=== PATIENT | male | born 1980 ===

== ENCOUNTER 2016-11-19 05:27 | Emergency (ER) | payer MEDICAID ==
[2016-11-19 05:32] VITALS: BMI 30.8
[2016-11-19 05:34] VITALS: TEMP 98.9
[2016-11-19] MEDS ORDERED: Sodium Chloride 0.9% 1,000 ML IV STA (05:43)
[2016-11-19] MEDS ORDERED: Morphine 2 mg/ml ISec IVP STA ×2 (05:43→06:54)
--- NOTE | 2016-11-19 05:47 | ED PDOC ---
Arrival/HPI - General Chief Complaint: Abdominal Pain Time Seen by Provider: 11/19/16 05:34 Historian: Patient - History of Present Illness Narrative History of Present Illness (Text): 11/19/16 05:42 Chalo Paniagua is a 36 year old, with no significant past medical history, who presents to the Emergency department complaining of epigastric pain for the past few days. Patient denies any fever, chills, chest pain, shortness of breath, nausea, vomiting, diarrhea, urinary symptoms, back pain, neck pain, headache, dizziness, or any other complaints. Time/Duration: Other (few days) Symptom Onset: Gradual Symptom Course: Unchanged Activities at Onset: Light Context: Home Past Medical History - Provider Review Nursing Documentation Reviewed: Yes - Psychiatric Hx Substance Use: No Family/Social History - Physician Review Nursing Documentation Reviewed: Yes Family/Social History: Unknown Family HX Smoking Status: Never Smoked Hx Alcohol Use: Yes Frequency of alcohol use: Socially Hx Substance Use: No Allergies/Home Meds Allergies/Adverse Reactions: Allergies No Known Allergies Allergy (Verified 11/19/16 05:32) Review of Systems - Physician Review All systems were reviewed & negative as marked: Yes - Review of Systems Constitutional: Normal. absent: Fevers Eyes: Normal ENT: Normal Respiratory: Normal. absent: SOB, Cough Cardiovascular: Normal. absent: Chest Pain Gastrointestinal: Abdominal Pain. absent: Nausea, Vomiting Genitourinary Male: Normal. absent: Dysuria, Frequency, Hematuria, Urinary Output Changes Musculoskeletal: Normal. absent: Back Pain, Neck Pain Skin: Normal. absent: Rash Neurological: Normal. absent: Headache, Dizziness Endocrine: Normal Hemo/Lymphatic: Normal Psychiatric: Normal Physical Exam Vital Signs Reviewed: Yes Vital Signs Temp Pulse Resp BP Pulse Ox 11/19/16 10:20 73 17 121/72 98 11/19/16 07:05 76 18 149/96 H 97 11/19/16 05:34 98.9 F 79 16 145/93 H 98 Temperature: Afebrile Blood Pressure: Normal Pulse: Regular Respiratory Rate: Normal Appearance: Positive for: Well-Appearing, Non-Toxic, Comfortable Pain Distress: None Mental Status: Positive for: Alert and Oriented X 3 - Systems Exam Head: Present: Atraumatic, Normocephalic Pupils: Present: PERRL Extroacular Muscles: Present: EOMI Conjunctiva: Present: Normal Mouth: Present: Moist Mucous Membranes Neck: Present: Normal Range of Motion Respiratory/Chest: Present: Clear to Auscultation, Good Air Exchange. No: Respiratory Distress, Accessory Muscle Use Cardiovascular: Present: Regular Rate and Rhythm, Normal S1, S2. No: Murmurs Abdomen: Present: Tenderness (Epigastric tenderness), Normal Bowel Sounds. No: Distention, Peritoneal Signs Back: Present: Normal Inspection Upper Extremity: Present: Normal Inspection. No: Cyanosis, Edema Lower Extremity: Present: Normal Inspection. No: Edema Neurological: Present: GCS=15, CN II-XII Intact, Speech Normal Skin: Present: Warm, Dry, Normal Color. No: Rashes Psychiatric: Present: Alert, Oriented x 3, Normal Insight, Normal Concentration Medical Decision Making ED Course and Treatment: 11/19/16 05:42 Impression: 36 year old male complaining of epigastric pain for the past few days. Plan: -- US Gallbladder -- Labs, lipase -- Urinalysis -- IV fluids -- Zofran -- Protonix -- Morphine -- Reassess and disposition Progress Notes: - Lab Interpretations Lab Results: 11/19/16 05:39 11/19/16 05:39 Lab Results 11/19/16 05:43: Urine Color Yellow, Urine Appearance Clear, Urine pH 6.0, Ur Specific [place] 1.025, Urine Protein Negative, Urine Glucose (UA) Negative, Urine Ketones Negative, Urine Blood Negative, Urine Nitrate Negative, Urine Bilirubin Negative, Urine Urobilinogen 1.0 H, Ur Leukocyte Esterase Negative 11/19/16 05:39: Sodium 142, Potassium 3.8, Chloride 106, Carbon Dioxide 27, Anion Gap 13, BUN 19, Creatinine 0.9, Est GFR ( Amer) > 60, Est GFR (Non- Af Amer) > 60, Random Glucose 102, Calcium 8.9, Total Bilirubin 0.5, AST 47, ALT 54, Alkaline Phosphatase 55, Total Protein 7.2, Albumin 4.1, Globulin 3.1, Albumin/Globulin Ratio 1.3, Lipase 53 11/19/16 05:39: PT 11.1, INR 1.03, APTT 26.9 11/19/16 05:39: WBC 4.1 L, RBC 5.03, Hgb 14.8, Hct 43.2, MCV 85.9, MCH 29.4, MCHC 34.3, RDW 13.0, Plt Count 239, MPV 9.6, Gran % 40.5 L, Lymph % (Auto) 48.4 H, [place] % (Auto) 8.4 H, Eos % (Auto) 2.2, Baso % (Auto) 0.5, Gran # 1.65, Lymph # 2.0, [place] # 0.3, Eos # 0.1, Baso # 0.02 - RAD Interpretation Radiology Orders: 11/19/16 06:13 GALL BLADDER [US] Stat - Medication Orders Current Medication Orders: Discontinued Medications Sodium Chloride (Sodium Chloride 0.9%) 1,000 mls @ 100 mls/hr IV .Q10H STA Stop: 11/19/16 15:42 Last Admin: 11/19/16 05:51 Dose: 100 mls/hr eMAR Start Stop Document 11/19/16 05:51 OCS (Rec: 11/19/16 05:51 [id number] Intravenous Solution Start Date 11/19/16 Start Time 05:51 Morphine Sulfate (Morphine) 2 mg IVP STAT STA Stop: 11/19/16 05:44 Last Admin: 11/19/16 05:57 Dose: 2 mg MAR Pain Assessment Document 11/19/16 05:57 OCS (Rec: 11/19/16 05:58 [id number] Pain Reassessment Is this a pain reassessment? Yes Sleep Is patient sleeping during reassessment? No Presence of Pain Presence of Pain Yes Pain Scale Used Pain Scale Used Numeric Location Pain Location Body Site Abdomen Description Description Constant IVP Administration Document 11/19/16 05:57 OCS (Rec: 11/19/16 05:58 [id number]) Charges for Administration # of IVP Administrations 1 Morphine Sulfate (Morphine) 2 mg IVP STAT STA Stop: 11/19/16 06:55 Last Admin: 11/19/16 07:32 Dose: 2 mg MAR Pain Assessment Document 11/19/16 07:32 MR (Rec: 11/19/16 07:32 MR [id number]) Pain Reassessment Is this a pain reassessment? Yes Sleep Is patient sleeping during reassessment? No Presence of Pain Presence of Pain Yes Pain Scale Used Pain Scale Used Numeric Location Left, Right or Bilateral Right Upper or Lower Upper Pain Location Body Site Abdomen Description Description Constant Intensity of Pain at present 8 Pain Behavior Facial Grimacing IVP Administration Document 11/19/16 07:32 MR (Rec: 11/19/16 07:32 MR [id number]) Charges for Administration # of IVP Administrations 1 Ondansetron HCl (Zofran Inj) 4 mg IVP STAT STA Stop: 11/19/16 05:44 Last Admin: 11/19/16 05:58 Dose: 4 mg IVP Administration Document 11/19/16 05:58 OCS (Rec: 11/19/16 05:58 OCS [id number]) Charges for Administration # of IVP Administrations 1 Pantoprazole Sodium (Protonix Inj) 40 mg IVP STAT STA Stop: 11/19/16 05:44 Last Admin: 11/19/16 05:58 Dose: 40 mg IVP Administration Document 11/19/16 05:58 OCS (Rec: 11/19/16 05:58 OCS [id number]) Charges for Administration # of IVP Administrations 1 - Transfer of Care Patient signed out to Dr:: katharina reed and dispo - Scribe Statement The provider has reviewed the documentation as recorded by the Oliveibthalia Novak Provider Scribe Attestation: All medical record entries made by the Scribe were at my direction and personally dictated by me. I have reviewed the chart and agree that the record accurately reflects my personal performance of the history, physical exam, medical decision making, and the department course for this patient. I have also personally directed, reviewed, and agree with the discharge instructions and disposition. Disposition/Present on Arrival - Present on Arrival Any Indicators Present on Arrival: No History of DVT/PE: No History of Uncontrolled Diabetes: No Urinary Catheter: No History of Decub. Ulcer: No History Surgical Site Infection Following: None - Disposition Have Diagnosis and Disposition been Completed?: Yes Diagnosis: Abdominal pain, Gallstone Disposition: HOME/ ROUTINE Disposition Time: 07:00 Condition: STABLE Discharge Instructions (ExitCare): Gallstones (ED), Abdominal Pain (ED) Additional Instructions: please follow up with your doctor. return to er with worsening symptoms or concerns. Prescriptions: Famotidine [Pepcid] 20 mg PO DAILY #20 tab Referrals: Piotr Tamayo APN [Primary Care Provider] - Follow up with primary Munguia,Stephon E, MD [Staff Provider] - Follow up with primary Forms: garbs (Hungarian)
[2016-11-19 05:58] LABS: BASO # 0.02 K/mm3 (0.0-2.0); BASO % 0.5 % (0.0-3.0); EOS # 0.1 (0.0-0.7); EOS % 2.2 % (1.5-5.0); GRAN # 1.65 (1.4-6.5); GRAN % 40.5 % (50.0-68.0); HEMATOCRIT 43.2 % (42.0-52.0); LYMPH % 48.4 % (22.0-35.0); MEAN CELL VOLUME 85.9 fl (80.0-105.0); MEAN CORPUSCULAR HEMOGLOBIN 29.4 pg (25.0-35.0); MEAN CORPUSCULAR HGB CONC 34.3 g/dl (31.0-37.0); MEAN PLATELET VOLUME 9.6 fl (7.0-11.0); MONO # 0.3 (0.1-0.6); MONO % 8.4 % (1.0-6.0); WHITE BLOOD COUNT 4.1 10^3/ul (4.5-11.0)
[2016-11-19 06:08] LABS: INR 1.03 (0.93-1.08); PARTIAL THROMBOPLASTIN TIME 26.9 Seconds (23.7-30.8)
[2016-11-19 06:09] LABS: ALB/GLOB RATIO 1.3 (1.1-1.8); ALKALINE PHOSPHATASE 55 U/L (38-126); ALT/SGPT 54 U/L (7-56); AST/SGOT 47 U/L (17-59); BILIRUBIN,TOTAL 0.5 mg/dL (0.2-1.3); BLOOD UREA NITROGEN 19 mg/dL (7-21); CALCIUM 8.9 mg/dL (8.4-10.5); CARBON DIOXIDE 27 mmol/L (21-33); CHLORIDE 106 mmol/L (98-107); GFR AFRICAN-AMERICAN > 60; GLUCOSE,RANDOM 102 mg/dL (70-110); LIPASE 53 U/L (23-300); POTASSIUM 3.8 mmol/L (3.6-5.0); SODIUM 142 mmol/L (132-148); TOTAL PROTEIN 7.2 g/dL (5.8-8.3)
--- NOTE | 2016-11-19 07:20 | ED PDOC ---
Physical Exam Vital Signs Reviewed: Yes Vital Signs Temp Pulse Resp BP Pulse Ox 11/19/16 07:05 76 18 149/96 H 97 11/19/16 05:34 98.9 F 79 16 145/93 H 98 Temperature: Afebrile Blood Pressure: Hypertensive Pulse: Regular Respiratory Rate: Normal Medical Decision Making ED Course and Treatment: 11/19/16 07:19 Patient endorsed to me by Dr. Morales at 07:00, pending gallbladder ultrasound. Report Date: 11/19/16 09:12 Procedure: Gallbladder ultrasound Dictated By: Neal Gabriel MD Impression: Cholelithiasis without sonographic evidence of cholecystitis. 11/19/16 09:14 On re-evaluation, minimal abdominal tenderness to palpation. US showed cholelithiasis. Patient offered admission for possible HIDA scan, however patient declined and requesting to be discharged home. - Lab Interpretations Lab Results: 11/19/16 05:39 11/19/16 05:39 Lab Results 11/19/16 05:43: Urine Color Yellow, Urine Appearance Clear, Urine pH 6.0, Ur Specific [place] 1.025, Urine Protein Negative, Urine Glucose (UA) Negative, Urine Ketones Negative, Urine Blood Negative, Urine Nitrate Negative, Urine Bilirubin Negative, Urine Urobilinogen 1.0 H, Ur Leukocyte Esterase Negative 11/19/16 05:39: Sodium 142, Potassium 3.8, Chloride 106, Carbon Dioxide 27, Anion Gap 13, BUN 19, Creatinine 0.9, Est GFR ( Amer) > 60, Est GFR (Non- Af Amer) > 60, Random Glucose 102, Calcium 8.9, Total Bilirubin 0.5, AST 47, ALT 54, Alkaline Phosphatase 55, Total Protein 7.2, Albumin 4.1, Globulin 3.1, Albumin/Globulin Ratio 1.3, Lipase 53 11/19/16 05:39: PT 11.1, INR 1.03, APTT 26.9 11/19/16 05:39: WBC 4.1 L, RBC 5.03, Hgb 14.8, Hct 43.2, MCV 85.9, MCH 29.4, MCHC 34.3, RDW 13.0, Plt Count 239, MPV 9.6, Gran % 40.5 L, Lymph % (Auto) 48.4 H, [place] % (Auto) 8.4 H, Eos % (Auto) 2.2, Baso % (Auto) 0.5, Gran # 1.65, Lymph # 2.0, [place] # 0.3, Eos # 0.1, Baso # 0.02 - RAD Interpretation Radiology Orders: 11/19/16 06:13 GALL BLADDER [US] Stat - Medication Orders Current Medication Orders: Sodium Chloride (Sodium Chloride 0.9%) 1,000 mls @ 100 mls/hr IV .Q10H STA Stop: 11/19/16 15:42 Last Admin: 11/19/16 05:51 Dose: 100 mls/hr eMAR Start Stop Document 11/19/16 05:51 OCS (Rec: 11/19/16 05:51 [id number] Intravenous Solution Start Date 11/19/16 Start Time 05:51 Discontinued Medications Morphine Sulfate (Morphine) 2 mg IVP STAT STA Stop: 11/19/16 05:44 Last Admin: 11/19/16 05:57 Dose: 2 mg MAR Pain Assessment Document 11/19/16 05:57 OCS (Rec: 11/19/16 05:58 [id number] Pain Reassessment Is this a pain reassessment? Yes Sleep Is patient sleeping during reassessment? No Presence of Pain Presence of Pain Yes Pain Scale Used Pain Scale Used Numeric Location Pain Location Body Site Abdomen Description Description Constant IVP Administration Document 11/19/16 05:57 OCS (Rec: 11/19/16 05:58 [id number] Charges for Administration # of IVP Administrations 1 Morphine Sulfate (Morphine) 2 mg IVP STAT STA Stop: 11/19/16 06:55 Last Admin: 11/19/16 07:32 Dose: 2 mg MAR Pain Assessment Document 11/19/16 07:32 MR (Rec: 11/19/16 07:32 MR [id number]) Pain Reassessment Is this a pain reassessment? Yes Sleep Is patient sleeping during reassessment? No Presence of Pain Presence of Pain Yes Pain Scale Used Pain Scale Used Numeric Location Left, Right or Bilateral Right Upper or Lower Upper Pain Location Body Site Abdomen Description Description Constant Intensity of Pain at present 8 Pain Behavior Facial Grimacing IVP Administration Document 11/19/16 07:32 MR (Rec: 11/19/16 07:32 MR [id number]) Charges for Administration # of IVP Administrations 1 Ondansetron HCl (Zofran Inj) 4 mg IVP STAT STA Stop: 11/19/16 05:44 Last Admin: 11/19/16 05:58 Dose: 4 mg IVP Administration Document 11/19/16 05:58 OCS (Rec: 11/19/16 05:58 OCS [id number]) Charges for Administration # of IVP Administrations 1 Pantoprazole Sodium (Protonix Inj) 40 mg IVP STAT STA Stop: 11/19/16 05:44 Last Admin: 11/19/16 05:58 Dose: 40 mg IVP Administration Document 11/19/16 05:58 OCS (Rec: 11/19/16 05:58 OCS [id number]) Charges for Administration # of IVP Administrations 1 - Scribe Statement The provider has reviewed the documentation as recorded by the Scribe Irina Sutton Provider Scribe Attestation: All medical record entries made by the Scribe were at my direction and personally dictated by me. I have reviewed the chart and agree that the record accurately reflects my personal performance of the history, physical exam, medical decision making, and the department course for this patient. I have also personally directed, reviewed, and agree with the discharge instructions and disposition. Disposition/Present on Arrival - Present on Arrival Any Indicators Present on Arrival: No History of DVT/PE: No History of Uncontrolled Diabetes: No Urinary Catheter: No History of Decub. Ulcer: No History Surgical Site Infection Following: None - Disposition Have Diagnosis and Disposition been Completed?: Yes Diagnosis: Abdominal pain, Gallstone Disposition: HOME/ ROUTINE Disposition Time: 09:14 Patient Problems: Current Active Problems Problem Status Onset Abdominal pain Acute Gallstone Acute Condition: STABLE Discharge Instructions (ExitCare): Gallstones (ED), Abdominal Pain (ED) Additional Instructions: please follow up with your doctor. return to er with worsening symptoms or concerns. Prescriptions: Famotidine [Pepcid] 20 mg PO DAILY #20 tab Referrals: Piotr Tamayo APN [Primary Care Provider] - Follow up with primary Stephon Munguia MD [Staff Provider] - Follow up with primary Forms: [employer] (Wolof)
[2016-11-19 08:42] LABS: URINE BILIRUBIN NEGATIVE (NEGATIVE); URINE BLOOD NEGATIVE (NEGATIVE); URINE GLUCOSE (UA) NEGATIVE (NEGATIVE); URINE KETONE NEGATIVE (NEGATIVE); URINE LEUKOCYTE ESTERASE NEGATIVE Leu/uL (NEGATIVE); URINE PROTEIN NEGATIVE mg/dL (<30 mg/dL)
[2016-11-19 08:56] LABS: URINE APPEARANCE CLEAR (CLEAR); URINE COLOR YELLOW (YELLOW)
--- NOTE | 2016-11-19 09:15 | US ---
HISTORY: abd pain COMPARISON: None. TECHNIQUE: Sonographic evaluation of the right upper quadrant of the abdomen. FINDINGS: LIVER: Measures 17.1 cm in length. Normal echogenicity of the liver parenchyma. No mass. No intrahepatic bile duct dilatation. GALLBLADDER: Cholelithiasis. No mural thickening. No pericholecystic fluid. No sonographic Mehta sign. COMMON BILE DUCT: Measures 6 mm. No stones. No dilatation. PANCREAS: Unremarkable as visualized. No mass. No ductal dilatation. RIGHT KIDNEY: Measures 12.4 cm in length. Normal echogenicity. No calculus, mass, or hydronephrosis. AORTA: No aneurysmal dilatation. IVC: Unremarkable. OTHER FINDINGS: None . IMPRESSION: Cholelithiasis without sonographic evidence of cholecystitis.
[2016-11-19 11:04] VITALS: BP 121/72; PULSE 73; RESP 17; O2SAT 98
== END 2016-11-19 10:20 | disposition home or self-care (01) ==
LOC: ED 05:27
DX: K80.20 Calculus of gallbladder without cholecystitis without obstruction (principal); R10.13 Epigastric pain
CPT/HCPCS: 76705; 80053; 81003; 83690; 85025; 85610; 85730; 96374; 96375; 96376; 99284; C9113; J2270; J2405; J7040

== ENCOUNTER 2016-12-27 10:13 | Inpatient (IN) | payer OTHER ==
[2016-12-27 10:15] VITALS: BMI 30.4
[2016-12-27] MEDS ORDERED: Sodium Chloride 0.9% 1,000 ML IV STA (10:37)
[2016-12-27 10:55] LABS: BASO # 0.01 K/mm3 (0.0-2.0); BASO % 0.3 % (0.0-3.0); EOS # 0.1 (0.0-0.7); EOS % 2.2 % (1.5-5.0); GRAN # 1.97 (1.4-6.5); GRAN % 52.9 % (50.0-68.0); HEMATOCRIT 43.9 % (42.0-52.0); LYMPH # 1.3 (1.2-3.4); MEAN CELL VOLUME 86.6 fl (80.0-105.0); MEAN CORPUSCULAR HGB CONC 33.5 g/dl (31.0-37.0); MEAN PLATELET VOLUME 9.3 fl (7.0-11.0); MONO # 0.3 (0.1-0.6); MONO % 8.6 % (1.0-6.0); RED CELL DISTRIBUTION WIDTH 13.2 % (11.5-14.5); WHITE BLOOD COUNT 3.7 10^3/ul (4.5-11.0)
--- NOTE | 2016-12-27 10:58 | ED PDOC ---
Arrival/HPI - General Chief Complaint: Abdominal Pain Time Seen by Provider: 12/27/16 10:19 Historian: Patient - History of Present Illness Narrative History of Present Illness (Text): 12/27/16 10:55 36yr old male presents today with upper abdominal pain. pt states he had laparoscopic cholecystectomy 4 days ago. Patient had 2 bowel movements surgery. Nausea or vomiting. Patient states he was without any complaints until today when he developed a tight upper abdominal pain radiating up and down the center of the abdomen. He denies fevers or chills. Denies cough or shortness of breath. Denies urinary symptoms. Denies dizziness or weakness. Time/Duration: Other (this AM) Symptom Course: Worsening Quality: Tightness Severity Level: 6 Past Medical History - Provider Review Nursing Documentation Reviewed: Yes - Travel History Have you recently traveled outside [place] w/in the past 3 mons?: No - Infectious Disease Hx of Infectious Diseases: None - Tetanus Immunization Tetanus Immunization: Unknown - Psychiatric Hx Substance Use: No - Surgical History Hx Cholecystectomy: Yes (2016) - Anesthesia Hx Anesthesia Reactions: No Hx Malignant Hyperthermia: No Family/Social History - Physician Review Nursing Documentation Reviewed: Yes Family/Social History: Unknown Family HX Smoking Status: Never Smoked Hx Alcohol Use: Yes Frequency of alcohol use: Socially Hx Substance Use: No Allergies/Home Meds Allergies/Adverse Reactions: Allergies No Known Allergies Allergy (Verified 11/19/16 05:32) Home Medications: Home Meds Medication Instructions Recorded Confirmed Oxycodone HCl/Acetaminophen 1 tab PO Q6 PRN 12/27/16 12/27/16 [Oxycodone-Acetaminophen 5-325] Review of Systems - Review of Systems Constitutional: absent: Fatigue, Fevers Respiratory: absent: SOB, Cough Cardiovascular: absent: Chest Pain, Palpitations Gastrointestinal: Abdominal Pain. absent: Constipation, Diarrhea, Nausea, Vomiting Genitourinary Male: absent: Dysuria, Frequency, Hematuria Musculoskeletal: absent: Arthralgias, Back Pain, Neck Pain Skin: absent: Rash, Pruritis Neurological: absent: Headache, Dizziness Psychiatric: absent: Anxiety, Depression Physical Exam Vital Signs Reviewed: Yes Vital Signs Temp Pulse Resp BP Pulse Ox 12/27/16 14:57 80 18 135/78 12/27/16 14:24 80 18 135/78 98 12/27/16 10:14 98.2 F 92 H 18 156/89 H 98 Temperature: Afebrile Blood Pressure: Hypertensive Pulse: Regular Respiratory Rate: Normal Appearance: Positive for: Well-Appearing, Non-Toxic, Comfortable Pain Distress: None Mental Status: Positive for: Alert and Oriented X 3 - Systems Exam Head: Present: Atraumatic Mouth: Present: Moist Mucous Membranes Neck: Present: Normal Range of Motion Respiratory/Chest: Present: Clear to Auscultation, Good Air Exchange. No: Respiratory Distress, Accessory Muscle Use Cardiovascular: Present: Regular Rate and Rhythm, Normal S1, S2. No: Murmurs Abdomen: Present: Tenderness (+ epigastric abdominal tenderness), Normal Bowel Sounds, Scars (healing laparoscopic wounds without erythema or edema or purulent discharge). No: Distention, Peritoneal Signs, Rebound, Guarding Back: Present: Normal Inspection. No: CVA Tenderness Upper Extremity: Present: Normal ROM Lower Extremity: Present: Normal ROM. No: Edema Neurological: Present: GCS=15, Speech Normal Skin: Present: Warm, Dry, Normal Color. No: Rashes Psychiatric: Present: Alert, Oriented x 3 Medical Decision Making ED Course and Treatment: 12/27/16 11:00 Patient is nontoxic well appearing with stable vital signs presenting with minimal epigastric abdominal pain s/p laparoscopic cholecystectomy 4 days ago. i disagree with triage; pt HAS had bowel movements since surgery. case immediately discussed with dr. quintero. He would like a Stat Hida scan and admit patient to his service. pt seen by certified ophthalmic surgical assistant; dr. diallo. CBC wnl CMP elevated ast alt Lipase wnl Urinalysis: wnl Ultrasound:FINDINGS: LIVER: Measures 13.4 cm. Diffusely increased echogenicity of the liver parenchyma. Consistent with fatty infiltration. Smooth contour. No focal mass. No biliary dilatation. GALLBLADDER: Status post cholecystectomy. COMMON BILE DUCT: Measures 3 mm. No stones. No dilatation. PANCREAS: Obscured by bowel gas RIGHT KIDNEY: Measures 10.1cm. Normal echogenicity. No calculus, mass, or hydronephrosis. LEFT KIDNEY: Measures 11.0cm. Normal echogenicity. No calculus, mass, or hydronephrosis. SPLEEN: Normal in size and contour. No mass. AORTA: Obscured by bowel gas IVC: Grossly patent but limited visualization OTHER FINDINGS: None. IMPRESSION: Fatty infiltration of the liver. Status post cholecystectomy. Otherwise unremarkable examination. HIDA SCAN PENDING cxr; ? rll infiltrate. blood cultures pending rocephin and zithromax started IV. Patient reassessment: pt feeling better. Discussed all results with patient in depth all aspects of this case were discussed the attending of record. Impression: Abdominal pain, pneumonia admit to med/surg observational status. - Lab Interpretations Lab Results: 12/27/16 10:49 12/27/16 10:49 Lab Results 12/27/16 10:49: WBC 3.7 L, RBC 5.07, Hgb 14.7, Hct 43.9, MCV 86.6, MCH 29.0, MCHC 33.5, RDW 13.2, Plt Count 243, MPV 9.3, Gran % 52.9, Lymph % (Auto) 36.0 H , [place] % (Auto) 8.6 H, Eos % (Auto) 2.2, Baso % (Auto) 0.3, Gran # 1.97, Lymph # 1.3, [place] # 0.3, Eos # 0.1, Baso # 0.01 12/27/16 10:49: Sodium 142, Potassium 4.0, Chloride 103, Carbon Dioxide 31, Anion Gap 13, BUN 12, Creatinine 1.1, Est GFR ( Amer) > 60, Est GFR (Non- Af Amer) > 60, Random Glucose 98, Calcium 9.4, Total Bilirubin 1.1, AST 68 H D, ALT 66 H, Alkaline Phosphatase 67, Total Protein 7.3, Albumin 4.0, Globulin 3.4 , Albumin/Globulin Ratio 1.2, Lipase 38 - RAD Interpretation Radiology Orders: 12/27/16 10:37 CHEST PORTABLE [RAD] Stat 12/27/16 11:06 ABDOMEN COMPLETE [US] Stat 12/27/16 12:03 BILIARY SCAN (HIDA) [NM] Stat - Medication Orders Current Medication Orders: Hydromorphone HCl (Dilaudid) 0.5 mg IVP Q6H PRN PRN Reason: Pain, severe (8-10) Sodium Chloride (Sodium Chloride 0.9%) 1,000 mls @ 140 mls/hr IV .Q7H9M DEZ Last Admin: 12/27/16 13:50 Dose: 140 mls/hr eMAR Start Stop Document 12/27/16 13:50 HI (Rec: 12/27/16 13:50 [id number][facility] Intravenous Solution Start Date 12/27/16 Start Time 13:50 Ondansetron HCl (Zofran Inj) 4 mg IVP Q6 PRN PRN Reason: Nausea/Vomiting Oxycodone/Acetaminophen (Percocet 5/325 Mg Tab) 1 tab PO Q6 PRN PRN Reason: Pain, moderate (4-7) Stop: 12/30/16 12:53 Discontinued Medications Sodium Chloride (Sodium Chloride 0.9%) 1,000 mls @ 999 mls/hr IV .Q1H1M STA Stop: 12/27/16 11:37 Last Admin: 12/27/16 10:55 Dose: 999 mls/hr eMAR Start Stop Document 12/27/16 10:55 HI (Rec: 12/27/16 10:55 [id number][facility] Intravenous Solution Start Date 12/27/16 Start Time 10:50 Ceftriaxone Sodium (Rocephin 1 Gram Ivpb) 1 gm in 100 mls @ 200 mls/hr IVPB STAT STA PRN Reason: Protocol Stop: 12/27/16 12:34 Last Admin: 12/27/16 13:50 Dose: 200 mls/hr eMAR Start Stop Document 12/27/16 13:50 HI (Rec: 12/27/16 13:50 [id number][facility] Intravenous Solution Start Date 12/27/16 Start Time 13:50 Azithromycin (Zithromax 500mg In Ns) 500 mg in 250 mls @ 167 mls/hr IVPB STAT STA PRN Reason: Protocol Stop: 12/27/16 13:34 Last Admin: 12/27/16 14:22 Dose: 167 mls/hr eMAR Start Stop Document 12/27/16 14:22 HI (Rec: 12/27/16 14:22 [id number][facility] Intravenous Solution Start Date 12/27/16 Start Time 14:22 Morphine Sulfate (Morphine) 4 mg IVP STAT STA Stop: 12/27/16 11:27 Last Admin: 12/27/16 11:45 Dose: 4 mg MAR Pain Assessment Document 12/27/16 11:45 HI (Rec: 12/27/16 11:49 [id number][facility] Pain Reassessment Is this a pain reassessment? No Sleep Is patient sleeping during reassessment? No Presence of Pain Presence of Pain Yes Location Pain Location Body Site Abdomen IVP Administration Document 12/27/16 11:45 HI (Rec: 12/27/16 11:49 HI [id number]) Charges for Administration # of IVP Administrations 1 Re-Assess: BUCK Pain Assessment Document 12/27/16 12:45 HI (Rec: 12/27/16 13:50 HI [id number]) Pain Reassessment Is this a pain reassessment? Yes Sleep Is patient sleeping during reassessment? No Presence of Pain Presence of Pain Yes Pain Scale Used Pain Scale Used Numeric Description Intensity of Pain at present 1 Disposition/Present on Arrival - Present on Arrival Any Indicators Present on Arrival: No History of DVT/PE: No History of Uncontrolled Diabetes: No Urinary Catheter: No History of Decub. Ulcer: No History Surgical Site Infection Following: None - Disposition Have Diagnosis and Disposition been Completed?: Yes Diagnosis: Pneumonia, Abdominal pain, S/P cholecystectomy Disposition: HOSPITALIZED Disposition Time: 12:11 Patient Plan: Admission Patient Problems: Current Active Problems Problem Status Onset Abdominal pain Acute Pneumonia Acute S/P cholecystectomy Acute Condition: FAIR
[2016-12-27 11:07] LABS: ALB/GLOB RATIO 1.2 (1.1-1.8); ALKALINE PHOSPHATASE 67 U/L (38-126); ALT/SGPT 66 U/L (7-56); AST/SGOT 68 U/L (17-59); BILIRUBIN,TOTAL 1.1 mg/dL (0.2-1.3); BLOOD UREA NITROGEN 12 mg/dL (7-21); CALCIUM 9.4 mg/dL (8.4-10.5); CARBON DIOXIDE 31 mmol/L (21-33); CHLORIDE 103 mmol/L (98-107); GFR AFRICAN-AMERICAN > 60; GLUCOSE,RANDOM 98 mg/dL (70-110); LIPASE 38 U/L (23-300); SODIUM 142 mmol/L (132-148); TOTAL PROTEIN 7.3 g/dL (5.8-8.3)
[2016-12-27] MEDS ORDERED: Morphine 4 mg/ml ISec IVP STA (11:26)
[2016-12-27] MEDS ORDERED: cefTRIAXone 1 gm 1 GM/100 ML BAG IVPB STA (12:05)
[2016-12-27] MEDS ORDERED: Azithromycin 500MG/NS 250ml 500 MG/250 ML BAG IVPB STA (12:05)
--- NOTE | 2016-12-27 12:11 | RAD ---
HISTORY: abdominal pain COMPARISON: No prior. FINDINGS: LUNGS: No pulmonary infiltrate. There is a vaguely nodular opacity overlying the anterior end of the right 3rd rib and somewhat linear opacity at left lung base. These are of uncertain significance. Further evaluation is advised either with follow-up chest radiograph or a computed tomography of the chest. PLEURA: No significant pleural effusion identified, no pneumothorax apparent. CARDIOVASCULAR: Normal. OSSEOUS STRUCTURES: No significant abnormalities. VISUALIZED UPPER ABDOMEN: Normal. OTHER FINDINGS: None. IMPRESSION: Bilateral vaguely nodular opacities. Follow-up with repeat chest x-ray or computed tomography is advised.
--- NOTE | 2016-12-27 12:51 | CP.PCM.HP ---
History of Present Illness - History of Present Illness History of Present Illness: H&P. Dr. Munguia 36yo M with recent Lap Cholecystectomy by Dr. Munguia on 12/24 comes in for evaluation of abdominal pain. Patient states that he has been doing well since surgery and has rarely required pain medication. This morning he started having sudden, sharp RUQ and epigastric abdominal pain. Denies any N/V/D. No CP/SOB. No cough. No Fevers/Chills. Last ate food yesterday night. Last BM was yesterday night, normal quality. No other complaints. Took percocet prior to coming in to the ER for evaluation. He states that his symptoms are much improved currently. PMHx: Deneis PSHx: Lap Lyla 12/24 Social Hx: Denies tobacco, denies ETOH, denies illicit drugs. Lives in [place] with sawyer DEVINE Present on Admission - Present on Admission Any Indicators Present on Admission: No Review of Systems - Constitutional Constitutional: absent: Chills, Fever - Cardiovascular Cardiovascular: absent: Chest Pain, Dyspnea - Respiratory Respiratory: absent: Cough, Dyspnea - Gastrointestinal Gastrointestinal: Abdominal Pain. absent: Nausea, Vomiting - Genitourinary Genitourinary: absent: Dysuria - Musculoskeletal Musculoskeletal: absent: Back Pain - Neurological Neurological: absent: Headaches, Syncope - Psychiatric Psychiatric: absent: Anxiety Past Patient History - Infectious Disease Hx of Infectious Diseases: None - Tetanus Immunizations Tetanus Immunization: Unknown - Past Medical History & Family History Past Family History: Reviewed and not pertinent - Past Social History Smoking Status: Never Smoked - PSYCHIATRIC Hx Substance Use: No - SURGICAL HISTORY Hx Cholecystectomy: Yes (2016) - ANESTHESIA Hx Anesthesia Reactions: No Hx Malignant Hyperthermia: No Meds Allergies/Adverse Reactions: Allergies Allergy/AdvReac Type Severity Reaction Status Date / Time No Known Allergies Allergy Verified 11/19/16 05:32 Physical Exam - Constitutional Appears: Well, No Acute Distress - Head Exam Head Exam: ATRAUMATIC, NORMAL INSPECTION, NORMOCEPHALIC - Eye Exam Eye Exam: EOMI, Normal appearance - ENT Exam ENT Exam: Mucous Membranes Moist - Respiratory Exam Respiratory Exam: NORMAL BREATHING PATTERN. absent: Respiratory Distress - Cardiovascular Exam Cardiovascular Exam: RRR, +S1, +S2. absent: JVD - GI/Abdominal Exam GI & Abdominal Exam: Soft. absent: Distended, Firm, Guarding, Rebound, Rigid Additional comments: mild tenderness to palpation in the epigastric area. No Mehta's sign, no tenderness to deep palpation in the RUQ. Soft, non-distended - Extremities Exam Extremities exam: Positive for: normal inspection. Negative for: calf tenderness - Neurological Exam Neurological exam: Alert, Oriented x3 Results - Vital Signs Recent Vital Signs: Last Vital Signs Temp 98.2 F 12/27/16 10:14 Pulse 92 H 12/27/16 10:14 Resp 18 12/27/16 10:14 BP 156/89 H 12/27/16 10:14 Pulse Ox 98 12/27/16 10:14 - Labs Result Diagrams: 12/27/16 10:49 12/27/16 10:49 Assessment & Plan - Assessment and Plan (Free Text) Assessment: 36yo M s/p Lap Cholecystectomy on 12/24 at [facility] [place], here for acute abdominal pain - mildly elevated LFTs noted - f/u HIDA - f/u AM labs - Pain control - IVF - NPO - Zofran prn Further recs as per Dr. Ezra Wheatley PGY1 surgery pager: [phone]
[2016-12-27] MEDS ORDERED: Oxycodone/Acetaminophen 5/325 mg Tab PO PRN (12:52)
[2016-12-27] MEDS ORDERED: HYDROmorphone 0.5 mg/0.5 ml ISec IVP PRN (12:54)
--- NOTE | 2016-12-27 13:15 | US ---
HISTORY: abdominal pain COMPARISON: None. TECHNIQUE: Sonographic evaluation of the abdomen. FINDINGS: LIVER: Measures 13.4 cm. Diffusely increased echogenicity of the liver parenchyma. Consistent with fatty infiltration. Smooth contour. No focal mass. No biliary dilatation. GALLBLADDER: Status post cholecystectomy. COMMON BILE DUCT: Measures 3 mm. No stones. No dilatation. PANCREAS: Obscured by bowel gas RIGHT KIDNEY: Measures 10.1cm. Normal echogenicity. No calculus, mass, or hydronephrosis. LEFT KIDNEY: Measures 11.0cm. Normal echogenicity. No calculus, mass, or hydronephrosis. SPLEEN: Normal in size and contour. No mass. AORTA: Obscured by bowel gas IVC: Grossly patent but limited visualization OTHER FINDINGS: None. IMPRESSION: Fatty infiltration of the liver. Status post cholecystectomy. Otherwise unremarkable examination.
[2016-12-27 13:21] LABS: URINE BILIRUBIN NEGATIVE (NEGATIVE); URINE BLOOD NEGATIVE (NEGATIVE); URINE GLUCOSE (UA) NEGATIVE (NEGATIVE); URINE KETONE NEGATIVE (NEGATIVE); URINE LEUKOCYTE ESTERASE NEGATIVE Leu/uL (NEGATIVE); URINE PROTEIN NEGATIVE mg/dL (<30 mg/dL); URINE UROBILINOGEN 0.2 E.U./dL (<1 E.U./dL)
[2016-12-27 13:26] LABS: URINE APPEARANCE CLEAR (CLEAR); URINE COLOR YELLOW (YELLOW)
[2016-12-27] MEDS: Sodium Chloride 0.9% 1,000 ML IV SCH (13:50)
[2016-12-27 17:02] VITALS: RESP 20
[2016-12-28] MEDS: Sodium Chloride 0.9% 1,000 ML IV SCH ×3 (00:53→18:38)
[2016-12-28 06:55] LABS: BASO # 0.02 K/mm3 (0.0-2.0); BASO % 0.5 % (0.0-3.0); EOS # 0.1 (0.0-0.7); EOS % 2.1 % (1.5-5.0); GRAN # 2.2 (1.4-6.5); LYMPH # 1.2 (1.2-3.4); LYMPH % 29.8 % (22.0-35.0); MEAN CELL VOLUME 86.1 fl (80.0-105.0); MEAN CORPUSCULAR HEMOGLOBIN 28.9 pg (25.0-35.0); MEAN CORPUSCULAR HGB CONC 33.6 g/dl (31.0-37.0); MEAN PLATELET VOLUME 9.3 fl (7.0-11.0); MONO # 0.4 (0.1-0.6); MONO % 10.6 % (1.0-6.0); RED CELL DISTRIBUTION WIDTH 12.9 % (11.5-14.5); WHITE BLOOD COUNT 3.9 10^3/ul (4.5-11.0)
[2016-12-28 07:31] LABS: INR 1.14 (0.93-1.08)
[2016-12-28 07:32] LABS: PARTIAL THROMBOPLASTIN TIME 30.5 Seconds (25.1-36.5)
--- NOTE | 2016-12-28 07:49 | CP.PCM.CON ---
<Kevan Mandujano - Last Filed: 12/28/16 09:26> History of Present Illness - History of Present Illness History of Present Illness: Kevan Mandujano D.O. PGY-2, GI Consultation Note 36 year old male with a history of laparoscopic cholecyst[place] on 12/24/[address] [place] [facility] [place] to complaints of severe abdominal pain that started on 12/27. Patient states that the pain was localized in the right upper quadrant, was non-radiating, stabbing in nature, and a "20/10" in severity. This pain was not associated with any recent meal, with diaphoresis, nausea, vomiting, diarrhea, constipation, fevers, chills, headache, chest pain, or any other symptoms. Patient denies any possible inciting factors. Patient states that the pain is somewhat better now since he's been in the hospital but still present. PMH: denies PSH: deven anibal SH: no tobacco, no EtOH, no illicits FH: noncontributory Meds: none Allergies: NKA Review of Systems - Constitutional Constitutional: absent: Chills, Headache - EENT Eyes: absent: Blind Spots, Blurred Vision Ears: absent: Decreased Hearing, Ear Discharge Nose/Mouth/Throat: absent: Epistaxis, Nasal Congestion - Cardiovascular Cardiovascular: absent: Chest Pain, Diaphoresis - Respiratory Respiratory: absent: Cough, Dyspnea - Gastrointestinal Gastrointestinal: Abdominal Pain, Cramping. absent: Bloating, Change in Stool Character, Constipation, Diarrhea, Hematemesis, Nausea, Vomiting - Genitourinary Genitourinary: absent: Dysuria, Hematuria - Musculoskeletal Musculoskeletal: absent: Neck Pain, Numbness - Integumentary Integumentary: absent: Pruritus, Rash - Neurological Neurological: absent: Dizziness, Numbness Past Patient History - Infectious Disease Hx of Infectious Diseases: None - Tetanus Immunizations Tetanus Immunization: Unknown - Past Medical History & Family History Past Family History: Reviewed and not pertinent - Past Social History Smoking Status: Never Smoked - MUSCULOSKELETAL/RHEUMATOLOGICAL Hx Falls: No - PSYCHIATRIC Hx Substance Use: No - SURGICAL HISTORY Hx Cholecystectomy: Yes (2016) - ANESTHESIA Hx Anesthesia Reactions: No Hx Malignant Hyperthermia: No Meds Allergies/Adverse Reactions: Allergies Allergy/AdvReac Type Severity Reaction Status Date / Time No Known Allergies Allergy Verified 11/19/16 05:32 - Medications Medications: Current Medications Hydromorphone HCl (Dilaudid) 0.5 mg IVP Q6H PRN PRN Reason: Pain, severe (8-10) Sodium Chloride (Sodium Chloride 0.9%) 1,000 mls @ 140 mls/hr IV .Q7H9M [facility] Last Admin: 12/28/16 00:53 Dose: 140 mls/hr Ondansetron HCl (Zofran Inj) 4 mg IVP Q6 PRN PRN Reason: Nausea/Vomiting Pantoprazole Sodium (Protonix Inj) 40 mg IVP DAILY [facility] Physical Exam - Constitutional Appears: Non-toxic, No Acute Distress - Head Exam Head Exam: ATRAUMATIC, NORMOCEPHALIC - Eye Exam Eye Exam: EOMI, PERRL. absent: Scleral icterus - ENT Exam ENT Exam: Mucous Membranes Moist, Normal Oropharynx - Neck Exam Neck exam: Positive for: Normal Inspection. Negative for: Tenderness - Respiratory Exam Respiratory Exam: Clear to Auscultation Bilateral. absent: Rales, Rhonchi, Wheezes - Cardiovascular Exam Cardiovascular Exam: RRR, +S1, +S2. absent: Gallop, Rubs - GI/Abdominal Exam GI & Abdominal Exam: Guarding (mild voluntary), Normal Bowel Sounds, Soft, Tenderness (diffuse, worse on RUQ/epigastrium). absent: Distended, Firm - Extremities Exam Extremities exam: Negative for: calf tenderness, pedal edema - Neurological Exam Neurological exam: Alert, Oriented x3 - Skin Skin Exam: Dry, Warm Results - Vital Signs Recent Vital Signs: Last Vital Signs Temp 98.3 F 12/28/16 00:00 Pulse 73 12/28/16 00:00 Resp 20 12/28/16 00:00 BP 148/89 12/28/16 00:00 Pulse Ox 96 12/28/16 00:00 - Labs Result Diagrams: 12/28/16 06:15 12/28/16 06:15 Labs: Laboratory Results - last 24 hr 12/27/16 12/28/16 12/28/16 13:10 06:15 06:15 WBC 3.9 L RBC 4.88 Hgb 14.1 Hct 42.0 MCV 86.1 MCH 28.9 MCHC 33.6 RDW 12.9 Plt Count 244 MPV 9.3 Gran % 57.0 Lymph % (Auto) 29.8 [place] % (Auto) 10.6 H Eos % (Auto) 2.1 Baso % (Auto) 0.5 Gran # 2.20 Lymph # 1.2 [place] # 0.4 Eos # 0.1 Baso # 0.02 PT 12.6 H INR 1.14 H APTT 30.5 Urine Color Yellow Urine Appearance Clear Urine pH 7.0 Ur Specific [place] 1.015 Urine Protein Negative Urine Glucose (UA) Negative Urine Ketones Negative Urine Blood Negative Urine Nitrate Negative Urine Bilirubin Negative Urine Urobilinogen 0.2 Ur Leukocyte Esterase Negative Assessment & Plan - Assessment and Plan (Free Text) Assessment: 36 year old male who presents now POD#4 of laparoscopic cholecystectomy for complaints of severe abdominal pain with concern for possibly CBD obstruction Plan: Cont IVF and pain control Mild elevation in AST/ALT yesterday with worsening today Will order hepatitis panel, ferritin, iron & TIBC, GIANCARLO w/ reflex, liver kidney michele ab, mitochondrial ab, and smooth muscle ab for other possible etiologies Pending read from HIDA scan read, preliminary states "cholecystectomy. Retetion of tracer in the liver suggesting cholestasis or biliary obstruction. No significant bowel activity, presence of a common bile duct obstruction cannot be excluded. No definite biliary leak or biloma." Abd US shows fatty infiltration of liver, s/p cholecystectomy Continue GI ppx We will advance diet to clear liquids at this time and NPO at midnight for MRCP to rule out any choledocholithiasis Discussed with fellow and attending physician. Thank you for the pleasure of participating in the care of this patient. For any questions contact me at [phone]. - Date & Time Date: 12/28/16 Time: 07:30 <Viet Maldonado Y - Last Filed: 12/28/16 10:53> Meds - Medications Medications: Current Medications Hydromorphone HCl (Dilaudid) 0.5 mg IVP Q6H PRN PRN Reason: Pain, severe (8-10) Sodium Chloride (Sodium Chloride 0.9%) 1,000 mls @ 140 mls/hr IV .Q7H9M [facility] Last Admin: 12/28/16 00:53 Dose: 140 mls/hr Ondansetron HCl (Zofran Inj) 4 mg IVP Q6 PRN PRN Reason: Nausea/Vomiting Pantoprazole Sodium (Protonix Inj) 40 mg IVP DAILY [facility] Results - Vital Signs Recent Vital Signs: Last Vital Signs Temp 98.3 F 12/28/16 07:00 Pulse 73 12/28/16 07:00 Resp 20 12/28/16 07:00 BP 148/100 H 12/28/16 07:00 Pulse Ox 95 12/28/16 07:00 - Labs Result Diagrams: 12/28/16 06:15 12/28/16 06:15 Labs: Laboratory Results - last 24 hr 12/27/16 12/28/16 12/28/16 13:10 06:15 06:15 WBC 3.9 L RBC 4.88 Hgb 14.1 Hct 42.0 MCV 86.1 MCH 28.9 MCHC 33.6 RDW 12.9 Plt Count 244 MPV 9.3 Gran % 57.0 Lymph % (Auto) 29.8 [place] % (Auto) 10.6 H Eos % (Auto) 2.1 Baso % (Auto) 0.5 Gran # 2.20 Lymph # 1.2 [place] # 0.4 Eos # 0.1 Baso # 0.02 PT INR APTT Sodium 140 Potassium 4.2 Chloride 104 Carbon Dioxide 29 Anion Gap 11 BUN 9 Creatinine 1.0 Est GFR ( Amer) > 60 Est GFR (Non-Af Amer) > 60 Random Glucose 91 Calcium 9.2 Iron TIBC % Saturation Total Bilirubin 1.3 Direct Bilirubin 0.7 H AST 269 H D ALT 390 H Alkaline Phosphatase 112 Total Protein 7.0 Albumin 3.7 Globulin 3.3 Albumin/Globulin Ratio 1.1 Urine Color Yellow Urine Appearance Clear Urine pH 7.0 Ur Specific [place] 1.015 Urine Protein Negative Urine Glucose (UA) Negative Urine Ketones Negative Urine Blood Negative Urine Nitrate Negative Urine Bilirubin Negative Urine Urobilinogen 0.2 Ur Leukocyte Esterase Negative 12/28/16 12/28/16 06:15 07:30 WBC RBC Hgb Hct MCV MCH MCHC RDW Plt Count MPV Gran % Lymph % (Auto) [place] % (Auto) Eos % (Auto) Baso % (Auto) Gran # Lymph # [place] # Eos # Baso # PT 12.6 H INR 1.14 H APTT 30.5 Sodium Potassium Chloride Carbon Dioxide Anion Gap BUN Creatinine Est GFR ( Amer) Est GFR (Non-Af Amer) Random Glucose Calcium Iron 239 H TIBC 303.1 % Saturation 79 H Total Bilirubin Direct Bilirubin AST ALT Alkaline Phosphatase Total Protein Albumin Globulin Albumin/Globulin Ratio Urine Color Urine Appearance Urine pH Ur Specific [place] Urine Protein Urine Glucose (UA) Urine Ketones Urine Blood Urine Nitrate Urine Bilirubin Urine Urobilinogen Ur Leukocyte Esterase Attending/Attestation - Attestation I have personally seen and examined this patient.: Yes I have fully participated in the care of the patient.: Yes I have reviewed all pertinent clinical information: Yes Notes (Text): 12/28/16 10:47 I have seen and examined patient with GI fellow. Agree with above documentation with the following additions. In brief, this is a 36 year old male with recent history of cholecystectomy 4 days ago, obesity, who presents with complaint of sudden onset abdominal pain which started yesterday. Post operatively he felt well and then suddenly developed severe, 10/10 intensity epigastric abdominal pain radiating to RUQ yesterday while watching television. He denies associated nausea, vomiting, fever/chills, weight loss, NSAID use, or change in bowel habits. The pain did not seem to be related to food consumption. A comprehensive 12 point review of systems performed, negative aside from mentioned above. Additional physical examination: Abdomen: no palpable hepato/splenomegaly Abdominal pain, s/p cholecystectomy Transaminitis Abdominal US reviewed by me showing normal caliber CBD HIDA imaging reviewed by me showing retained tracer after 4 hours - ?biliary obstruction - NPO - Continue with IVF hydration, supportive care, pain control - Anti-emetic therapy PRN - Obtain viral hepatitis and autoimmune panels, continue to monitor LFTs - Obtain MRCP for further evaluation, rule out retained CBD stone post cholecystectomy - Will continue to monitor patient clinical course
[2016-12-28 08:32] LABS: ALB/GLOB RATIO 1.1 (1.1-1.8); ALKALINE PHOSPHATASE 112 U/L (38-126); ALT/SGPT 390 U/L (7-56); AST/SGOT 269 U/L (17-59); BILIRUBIN,DIRECT 0.7 mg/dL (0.0-0.4); BILIRUBIN,TOTAL 1.3 mg/dL (0.2-1.3); BLOOD UREA NITROGEN 9 mg/dL (7-21); CALCIUM 9.2 mg/dL (8.4-10.5); CARBON DIOXIDE 29 mmol/L (21-33); CHLORIDE 104 mmol/L (98-107); GFR AFRICAN-AMERICAN > 60; GLUCOSE,RANDOM 91 mg/dL (70-110); POTASSIUM 4.2 mmol/L (3.6-5.0); SODIUM 140 mmol/L (132-148)
--- NOTE | 2016-12-28 08:55 | RAD ---
HISTORY: interval changes COMPARISON: Portable chest 12/26/2016. FINDINGS: LUNGS: Improved aeration at the bilateral bases with no definite infiltrate appreciated bilaterally. PLEURA: No significant pleural effusion identified, no pneumothorax apparent. CARDIOVASCULAR: Normal. OSSEOUS STRUCTURES: No significant abnormalities. VISUALIZED UPPER ABDOMEN: Normal. OTHER FINDINGS: None. IMPRESSION: No interval infiltrate identified bilaterally or pleural effusion. Cardiomediastinal silhouette appears stable.
--- NOTE | 2016-12-28 14:53 | CP.PCM.PN ---
Subjective - Date & Time of Evaluation Date of Evaluation: 12/28/16 Time of Evaluation: 07:00 - Subjective Subjective: Surgery: Dr. Munguia Pt seen and examined. No acute overnight events. States he feels well and denies any abdominal pain at this time. Denies N/V, F/C. Objective - Vital Signs/Intake and Output Vital Signs (last 24 hours): Temp Pulse Resp BP Pulse Ox 98.3 F 73 20 148/100 H 95 12/28/16 07:00 12/28/16 07:00 12/28/16 07:00 12/28/16 07:00 12/28/16 07:00 - Medications Medications: Current Medications Hydromorphone HCl (Dilaudid) 0.5 mg IVP Q6H PRN PRN Reason: Pain, severe (8-10) Sodium Chloride (Sodium Chloride 0.9%) 1,000 mls @ 140 mls/hr IV .Q7H9M [facility] Last Admin: 12/28/16 09:00 Dose: 140 mls/hr Ondansetron HCl (Zofran Inj) 4 mg IVP Q6 PRN PRN Reason: Nausea/Vomiting Pantoprazole Sodium (Protonix Inj) 40 mg IVP DAILY [facility] Last Admin: 12/28/16 10:40 Dose: 40 mg - Labs Labs: PT 12.6 SECONDS (9.4-12.5) H 12/28/16 06:15 INR 1.14 (0.93-1.08) H 12/28/16 06:15 APTT 30.5 Seconds (25.1-36.5) 12/28/16 06:15 - Constitutional Appears: Well, No Acute Distress - Head Exam Head Exam: ATRAUMATIC, NORMOCEPHALIC - ENT Exam ENT Exam: Mucous Membranes Moist - Respiratory Exam Respiratory Exam: NORMAL BREATHING PATTERN - Cardiovascular Exam Cardiovascular Exam: RRR - GI/Abdominal Exam GI & Abdominal Exam: Soft. absent: Distended, Tenderness - Extremities Exam Extremities Exam: Full ROM - Neurological Exam Neurological Exam: Alert, Awake, Oriented x3 - Skin Skin Exam: Dry, Warm Assessment and Plan - Assessment and Plan (Free Text) Assessment: 36M with abdominal pain and trans-aminitis s/p lap anibal; r/o biliary obstruction Plan: - GI on board - pt to get MRCP sharyn morning - CLD in the meantime - will cont to trend LFTs - d/w Dr. Ezra Marroquin, PGY-3 Surgery
[2016-12-28] MEDS ORDERED: Gadodiamide 287 MG/ML VIAL (20ML) IV ONE (17:28)
[2016-12-29 07:19] LABS: BASO # 0.02 K/mm3 (0.0-2.0); BASO % 0.4 % (0.0-3.0); EOS # 0.1 (0.0-0.7); EOS % 2.3 % (1.5-5.0); GRAN # 2.6 (1.4-6.5); GRAN % 55.5 % (50.0-68.0); HEMATOCRIT 41.5 % (42.0-52.0); LYMPH # 1.5 (1.2-3.4); LYMPH % 32.4 % (22.0-35.0); MEAN CELL VOLUME 85.9 fl (80.0-105.0); MEAN CORPUSCULAR HEMOGLOBIN 28.8 pg (25.0-35.0); MEAN CORPUSCULAR HGB CONC 33.5 g/dl (31.0-37.0); MEAN PLATELET VOLUME 9.2 fl (7.0-11.0); MONO # 0.4 (0.1-0.6); MONO % 9.4 % (1.0-6.0); RED CELL DISTRIBUTION WIDTH 12.9 % (11.5-14.5); WHITE BLOOD COUNT 4.7 10^3/ul (4.5-11.0)
--- NOTE | 2016-12-29 07:26 | CP.PCM.PN ---
<Kevan Mandujano - Last Filed: 12/29/16 09:55> Subjective - Date & Time of Evaluation Date of Evaluation: 12/29/16 Time of Evaluation: 07:00 - Subjective Subjective: Kevan Mandujano D.O. PGY-2, GI Progress Note Patient was seen and examined at bedside. Patient states that he did well overnight, had no repeat episodes of nausea or vomiting and also did not have any more pain. Patient did go for MRCP yesterday evening and had no issues with it. Only complaint at this time is some gas but he did have a BM yesterday. No acute overnight events per nursing staff. Objective - Vital Signs/Intake and Output Vital Signs (last 24 hours): Temp Pulse Resp BP Pulse Ox 98.3 F 68 20 119/79 95 12/28/16 18:23 12/28/16 18:23 12/28/16 18:23 12/28/16 18:23 12/28/16 18:23 Intake and Output: 12/29/16 12/29/16 06:59 18:59 Intake Total 120 Balance 120 - Medications Medications: Current Medications Hydromorphone HCl (Dilaudid) 0.5 mg IVP Q6H PRN PRN Reason: Pain, severe (8-10) Sodium Chloride (Sodium Chloride 0.9%) 1,000 mls @ 140 mls/hr IV .Q7H9M [facility] Last Admin: 12/28/16 18:38 Dose: 140 mls/hr Ondansetron HCl (Zofran Inj) 4 mg IVP Q6 PRN PRN Reason: Nausea/Vomiting Pantoprazole Sodium (Protonix Inj) 40 mg IVP DAILY [facility] Last Admin: 12/28/16 10:40 Dose: 40 mg - Labs Labs: 12/29/16 06:45 PT 12.6 SECONDS (9.4-12.5) H 12/28/16 06:15 INR 1.14 (0.93-1.08) H 12/28/16 06:15 APTT 30.5 Seconds (25.1-36.5) 12/28/16 06:15 - Constitutional Appears: Well, Non-toxic, No Acute Distress - Head Exam Head Exam: ATRAUMATIC, NORMOCEPHALIC - Eye Exam Eye Exam: EOMI, PERRL. absent: Scleral icterus - ENT Exam ENT Exam: Mucous Membranes Moist, Normal Oropharynx - Neck Exam Neck Exam: Normal Inspection. absent: Tenderness - Respiratory Exam Respiratory Exam: Clear to Ausculation Bilateral. absent: Rales, Rhonchi, Wheezes - Cardiovascular Exam Cardiovascular Exam: RRR, +S1, +S2. absent: Gallop, Rubs - GI/Abdominal Exam GI & Abdominal Exam: Soft. absent: Tenderness Assessment and Plan - Assessment and Plan (Free Text) Assessment: 36 year old male POD#5 laparoscopic cholecystectomy who presented with complaints of sudden onset abdominal pain Plan: Abd pain s/p cholecystectomy Transamnitis Advanced diet to low fat, 6 small meals Abd US showed fatty infiltration of liver, s/p cholecystectomy HIDA showed retained tracer after 4 hours with question of biliary obstruction MRCP reviewed with radiologist Dr. Cabrera, normal CBD caliber and no signs of disease Viral hepatitis panel negative Autoimmune panel pending At this time patient OK to DC from GI perspective, will recommend that patient have outpatient followup for LFTs. Thank you for the pleasure of participating in the care of this patient. <Dennis Ziegler - Last Filed: 12/29/16 19:22> Objective - Vital Signs/Intake and Output Vital Signs (last 24 hours): Temp Pulse Resp BP Pulse Ox 98.2 F 76 20 128/76 97 12/29/16 08:24 12/29/16 08:24 12/29/16 08:24 12/29/16 08:24 12/29/16 08:24 - Labs Labs: 12/29/16 06:45 12/29/16 06:45 PT 12.8 SECONDS (9.4-12.5) H 12/29/16 06:45 INR 1.16 (0.93-1.08) H 12/29/16 06:45 APTT 32.4 Seconds (25.1-36.5) 12/29/16 06:45 Attending/Attestation - Attestation I have personally seen and examined this patient.: Yes I have fully participated in the care of the patient.: Yes I have reviewed all pertinent clinical information, including history, physical exam and plan: Yes Notes (Text): 12/29/16 19:20 36 year old male s/p laparoscopic cholecystectomy admitted with abdominal pain/ elevated lfts. 1. Abdominal pain 2. Elevated LFTs Plan: -pain is now completely resolved -diet as tolerated -LFTs improved, MRCP negative for choledocholithiasis -HIDA negative for leak -recommend outpatient lfts in 2 weeks
[2016-12-29 07:37] LABS: INR 1.16 (0.93-1.08); PARTIAL THROMBOPLASTIN TIME 32.4 Seconds (25.1-36.5)
[2016-12-29 07:56] LABS: ALB/GLOB RATIO 1.1 (1.1-1.8); ALKALINE PHOSPHATASE 96 U/L (38-126); ALT/SGPT 267 U/L (7-56); AST/SGOT 99 U/L (17-59); BILIRUBIN,TOTAL 1.2 mg/dL (0.2-1.3); BLOOD UREA NITROGEN 11 mg/dL (7-21); CALCIUM 9.2 mg/dL (8.4-10.5); CARBON DIOXIDE 30 mmol/L (21-33); CHLORIDE 104 mmol/L (98-107); GFR AFRICAN-AMERICAN > 60; GLUCOSE,RANDOM 88 mg/dL (70-110); POTASSIUM 4.3 mmol/L (3.6-5.0); SODIUM 140 mmol/L (132-148); TOTAL PROTEIN 7.1 g/dL (5.8-8.3)
[2016-12-29 08:25] VITALS: BP 128/76; PULSE 76; TEMP 98.2; O2SAT 97
--- NOTE | 2016-12-29 09:50 | MRI ---
PROCEDURE: Magnetic Resonance Cholangiopancreatography MRI of the abdomen with and without contrast HISTORY: Rule out CBD stone COMPARISON: None available. TECHNIQUE: Multiplanar, multisequence MR images of the abdomen were obtained, including heavily T2 weighted MRCP images of the biliary system. Rotating maximum intensity projection images of the biliary system were generated. FINDINGS: MRCP: The common bile duct is of a normal caliber. No evidence of choledocholithiasis. No intrahepatic biliary ductal dilatation. LIVER: Unremarkable. GALLBLADDER: Recently removed. There is no evidence of a postoperative collection SPLEEN: Unremarkable. PANCREAS: Unremarkable. ADRENALS: Unremarkable. KIDNEYS: Unremarkable. AORTA: No aneurysm. ASCITES: None. OTHER FINDINGS: No enhancing lesions. The report concurs with the preliminary [facility] report IMPRESSION: Negative study.
--- NOTE | 2016-12-29 12:44 | CP.PCM.PN ---
Subjective - Date & Time of Evaluation Date of Evaluation: 12/29/16 Time of Evaluation: 12:39 - Subjective Subjective: General Surgery Progress Note for Dr. Munguia This patient was seen and examined this AM at bedside. He reports no acute events overnight. He denies any abdominal pain. MRCP was completed and negative. He deneis any fevers chills chest pain nausea vomiting. Objective - Vital Signs/Intake and Output Vital Signs (last 24 hours): Temp Pulse Resp BP Pulse Ox 98.2 F 76 20 128/76 97 12/29/16 08:24 12/29/16 08:24 12/29/16 08:24 12/29/16 08:24 12/29/16 08:24 Intake and Output: 12/29/16 12/29/16 06:59 18:59 Intake Total 120 Balance 120 - Medications Medications: Current Medications Hydromorphone HCl (Dilaudid) 0.5 mg IVP Q6H PRN PRN Reason: Pain, severe (8-10) Sodium Chloride (Sodium Chloride 0.9%) 1,000 mls @ 140 mls/hr IV .Q7H9M [facility] Last Admin: 12/28/16 18:38 Dose: 140 mls/hr Ondansetron HCl (Zofran Inj) 4 mg IVP Q6 PRN PRN Reason: Nausea/Vomiting Pantoprazole Sodium (Protonix Inj) 40 mg IVP DAILY [facility] Last Admin: 12/29/16 10:24 Dose: 40 mg - Labs Labs: 12/29/16 06:45 12/29/16 06:45 PT 12.8 SECONDS (9.4-12.5) H 12/29/16 06:45 INR 1.16 (0.93-1.08) H 12/29/16 06:45 APTT 32.4 Seconds (25.1-36.5) 12/29/16 06:45 - Constitutional Appears: Non-toxic - Head Exam Head Exam: ATRAUMATIC, NORMOCEPHALIC - Eye Exam Eye Exam: EOMI, Normal appearance - ENT Exam ENT Exam: Mucous Membranes Moist - Respiratory Exam Respiratory Exam: NORMAL BREATHING PATTERN - Cardiovascular Exam Cardiovascular Exam: REGULAR RHYTHM - GI/Abdominal Exam GI & Abdominal Exam: Soft. absent: Guarding, Rigid, Tenderness - Neurological Exam Neurological Exam: Alert, Awake - Psychiatric Exam Psychiatric exam: Normal Affect, Normal Mood - Skin Skin Exam: Normal Color, Warm Assessment and Plan - Assessment and Plan (Free Text) Assessment: 36M with abdominal pain and trans-aminitis s/p lap anibal; r/o biliary obstruction Plan: - GI on board - MRCP Negative - Advance diet as tolerated - will cont to trend LFTs - Will discuss with Dr. Ezra Graham PGY2
--- NOTE | 2016-12-29 13:21 | CP.PCM.DIS ---
Provider - Provider Date of Admission: 12/28/16 12:38 Attending physician: Stephon Munguia MD Primary care physician: Piotr Tamayo APN Consults: GI: Karlie Time Spent in preparation of Discharge (in minutes): 45 Hospital Course - Lab Results Lab Results: Most Recent Lab Values WBC 4.7 10^3/ul (4.5-11.0) D 12/29/16 06:45 RBC 4.83 10^6/uL (3.5-6.1) 12/29/16 06:45 Hgb 13.9 g/dL (14.0-18.0) L 12/29/16 06:45 Hct 41.5 % (42.0-52.0) L 12/29/16 06:45 MCV 85.9 fl (80.0-105.0) 12/29/16 06:45 MCH 28.8 pg (25.0-35.0) 12/29/16 06:45 MCHC 33.5 g/dl (31.0-37.0) 12/29/16 06:45 RDW 12.9 % (11.5-14.5) 12/29/16 06:45 Plt Count 245 10^3/uL (120.0-450.0) 12/29/16 06:45 MPV 9.2 fl (7.0-11.0) 12/29/16 06:45 Gran % 55.5 % (50.0-68.0) 12/29/16 06:45 Lymph % (Auto) 32.4 % (22.0-35.0) 12/29/16 06:45 [place] % (Auto) 9.4 % (1.0-6.0) H 12/29/16 06:45 Eos % (Auto) 2.3 % (1.5-5.0) 12/29/16 06:45 Baso % (Auto) 0.4 % (0.0-3.0) 12/29/16 06:45 Gran # 2.60 (1.4-6.5) 12/29/16 06:45 Lymph # 1.5 (1.2-3.4) 12/29/16 06:45 [place] # 0.4 (0.1-0.6) 12/29/16 06:45 Eos # 0.1 (0.0-0.7) 12/29/16 06:45 Baso # 0.02 K/mm3 (0.0-2.0) 12/29/16 06:45 PT 12.8 SECONDS (9.4-12.5) H 12/29/16 06:45 INR 1.16 (0.93-1.08) H 12/29/16 06:45 APTT 32.4 Seconds (25.1-36.5) 12/29/16 06:45 Sodium 140 mmol/L (132-148) 12/29/16 06:45 Potassium 4.3 mmol/L (3.6-5.0) 12/29/16 06:45 Chloride 104 mmol/L (98-107) 12/29/16 06:45 Carbon Dioxide 30 mmol/L (21-33) 12/29/16 06:45 Anion Gap 11 (10-20) 12/29/16 06:45 BUN 11 mg/dL (7-21) 12/29/16 06:45 Creatinine 1.0 mg/dl (0.8-1.5) 12/29/16 06:45 Est GFR ( Amer) > 60 12/29/16 06:45 Est GFR (Non-Af Amer) > 60 12/29/16 06:45 Random Glucose 88 mg/dL (70-110) 12/29/16 06:45 Calcium 9.2 mg/dL (8.4-10.5) 12/29/16 06:45 Iron 239 ug/dL (45-180) H 12/28/16 07:30 TIBC 303.1 ug/dL (250-450) 12/28/16 07:30 % Saturation 79 (20-55) H 12/28/16 07:30 Ferritin 145.0 ng/mL 12/28/16 07:30 Total Bilirubin 1.2 mg/dL (0.2-1.3) 12/29/16 06:45 Direct Bilirubin 0.7 mg/dL (0.0-0.4) H 12/28/16 06:15 AST 99 U/L (17-59) H D 12/29/16 06:45 ALT 267 U/L (7-56) H 12/29/16 06:45 Alkaline Phosphatase 96 U/L (38-126) 12/29/16 06:45 Total Protein 7.1 g/dL (5.8-8.3) 12/29/16 06:45 Albumin 3.8 g/dL (3.0-4.8) 12/29/16 06:45 Globulin 3.3 gm/dL 12/29/16 06:45 Albumin/Globulin Ratio 1.1 (1.1-1.8) 12/29/16 06:45 Lipase 38 U/L (23-300) 12/27/16 10:49 Urine Color Yellow (YELLOW) 12/27/16 13:10 Urine Appearance Clear (CLEAR) 12/27/16 13:10 Urine pH 7.0 (4.7-8.0) 12/27/16 13:10 Ur Specific [place] 1.015 (1.005-1.035) 12/27/16 13:10 Urine Protein Negative mg/dL (<30 mg/dL) 12/27/16 13:10 Urine Glucose (UA) Negative mg/dL (NEGATIVE) 12/27/16 13:10 Urine Ketones Negative mg/dL (NEGATIVE) 12/27/16 13:10 Urine Blood Negative (NEGATIVE) 12/27/16 13:10 Urine Nitrate Negative (NEGATIVE) 12/27/16 13:10 Urine Bilirubin Negative (NEGATIVE) 12/27/16 13:10 Urine Urobilinogen 0.2 E.U./dL (<1 E.U./dL) 12/27/16 13:10 Ur Leukocyte Esterase Negative [place]/uL (NEGATIVE) 12/27/16 13:10 Hepatitis A IgM Ab Negative (NEGATIVE) 12/28/16 07:30 Hep Bs Antigen Negative (NEGATIVE) 12/28/16 07:30 Hep B Core IgM Ab Negative (NEGATIVE) 12/28/16 07:30 Hepatitis C Antibody Negative (NEGATIVE) 12/28/16 07:30 - Hospital Course Hospital Course: Admitting Dx: Acute abdominal pain s/p cholecystectomy Transaminitis Discharge Dx: Acute abdominal pain s/p cholecystectomy, resolved Transaminitis, possible hemachromatosis vs autoimmune hepatitis Elevated Iron studies 36yo M with recent Lap Cholecystectomy by Dr. Munguia on 12/24/16 came in for evaluation of abdominal pain. Patient stated that he had been doing well since surgery and rarely required pain medication, but started having sudden, sharp RUQ and epigastric abdominal pain the morning of admission. In the ED, symptoms had improved with PO pain medication. Patient was admitted for acute abdominal pain and elevated LFT's. GI was consulted, recommendations were appreciated. During hospital course, LFT's were monitored and elevated on second day of admission, but trended down afterwards. Hepatitis panel was negative. Per GI, autoimmune hepatitis workup was ordered. Iron studies were ordered, which showed elevated iron levels and %saturation. MRCP, HIDA, and abd US were ordered , results below. Today, the patient was seen and examined at bedside. Pt denied any acute overnight events. Diet was advanced, which patient tolerated well. As patient's symptoms had resolved and was medically stable, he was discharged. Patient was advised to follow up with his PMD and Dr. Munguia as outpatient. Patient was advised to follow up with PMD to evaluate him for possible hemochromatosis due elevated LFT's and elevated iron. Follow up needed for autoimmune hepatitis workup when results return. Imaging: Abd US showed fatty infiltration of liver, s/p cholecystectomy HIDA showed retained tracer after 4 hours with question of biliary obstruction MRCP reviewed with radiologist Dr. Cabrera, normal CBD caliber and no signs of disease Discharge Medications: None. Discharge Exam - Head Exam Head Exam: ATRAUMATIC, NORMOCEPHALIC - Eye Exam Eye Exam: EOMI, Normal appearance - Neck Exam Neck exam: Full Rom - Respiratory Exam Respiratory Exam: Clear to PA & Lateral. absent: Rales, Rhonchi, Wheezes, Respiratory Distress - Cardiovascular Exam Cardiovascular Exam: RRR, +S1, +S2. absent: Diastolic murmur, Gallop, Rubs, Systolic Murmur - GI/Abdominal Exam GI & Abdominal Exam: Soft. absent: Distended, Guarding, Rebound, Tenderness - Extremities Exam Extremities exam: normal inspection - Back Exam Back exam: NORMAL INSPECTION - Neurological Exam Neurological exam: Alert, Oriented x3 - Psychiatric Exam Psychiatric exam: Normal Affect, Normal Mood - Skin Skin Exam: Dry, Intact, Normal Color, Warm Discharge Plan - Follow Up Plan Condition: FAIR Disposition: HOME/ ROUTINE Instructions: Acute Abdominal Pain (DC), Acute Abdominal Pain (GEN) Additional Instructions: 1. Follow up with PMD within 1 week 2. Follow up with Dr. Munguia within 1 week 3. Resume medications as prescribed 4. Return to ED if symptoms worsen From GI perspective: 1. Please follow up for lab results from autoimmune panel. 2. Also follow up with PMD about work up for hemochromatosis and elevated LFTs. Referrals: Viet Maldonado MD [Staff Provider] - Piotr Tamayo APN [Primary Care Provider] - Stephon Munguia MD [Staff Provider] -
== END 2016-12-29 14:53 | disposition home or self-care (01) | DRG 392 ==
LOC: ED 10:13 → ERH 12:12 → 5RNO 15:32 → ERH 16:14 → 5RNO 16:36 → OBSVTOIN 12-28 12:38
PROVIDERS: ADMIT Surgery; ATTEND Surgery
DX: R10.11 Right upper quadrant pain (principal); R10.13 Epigastric pain; Z90.49 Acquired absence of other specified parts of digestive tract; K76.0 Fatty (change of) liver, not elsewhere classified; E66.9 Obesity, unspecified